=== PATIENT | female | born 1985 | race Caucasian/White ===

== ENCOUNTER 2025-09-09 10:41 | Inpatient (IN) | payer BC, SELFPAY ==
[2025-09-09] VITALS (57 sets, daily range): BP systolic 93–160; BP diastolic 48–98; PULSE 99–119; RESP 8–49; TEMP 36.1–37.4; O2SAT 92–100
--- NOTE | 2025-09-09 10:45 | RT.EKG_ITS ---
APPROVED REPORT Exam: Resting ECG Reason for Exam: Nausea vomiting Patient Location: E HR:111 bpm ECG Measurements Heart Rate 111 AXIS OK 153 P 39 QRSd 98 QRS -6 QT 283 T 172 QTc 385 Conclusion Sinus tachycardia...rate> 99 Nonspecific T abnormalities, lateral leads...T <-0.10mV, I aVL V5 V6 No Occlusion WV
--- NOTE | 2025-09-09 10:50 | W.ED.GENAD ---
Discharge Plan Disposition Patient Disposition: Admit to [facility] Discharge Details Clinical Impression: DKA, type 1 Admit Date/Time: 09/09/25 15:19 Admit Provider: Hipolito Corral Attending Provider: Hipolito Corral Primary Care Provider: Unknown,Unknown ED Provider: Todd Temple Discharge Data Discharge Date/Time-TO BE ENTERED AT DEPARTURE: 09/09/25 15:27 HPI General Date/Time Provider Initiated Documentation: 09/09/25 10:50. HPI Narrative: MDM This is a type I diabetic in DKA. Her initial venous blood gas did not show acidemia however given her vomiting my suspicion was high that she had metabolic alkalosis. Her subsequent blood gas confirmed acidosis. She had an elevated beta hydroxybutyrate negative troponins. Patient had a mildly elevated anion gap. I started her on insulin drip with D5 infusion and LR infusion following 500 cc LR bolus. I also gave her her long-acting insulin. She had no clear triggers. She is soft nontender abdomen so as not suspicious for intra-abdominal infection. No cough nor hypoxia to suggest pneumonia. No rash to chest to suggest zoster. No black or bloody stool to suggest acute GI bleed. US Guided Peripheral IV Procedure Note Indication: Difficult IV access Peripheral Prep: Skin prep: Alcohol prep. Prep agent: Prep was allowed to dry for 30 seconds. Sterility: Gloves & sterile probe cover & sterile ultrasound gel. Insertion: Appropriate procedural pause was taken. Ultrasound guided 18-gauge catheter was placed under real-time guidance in the patient's right basilic vein. Post Procedure: Estimated blood loss: Minimal Complications: None US Guided Peripheral IV Procedure Note Indication: Difficult IV access Peripheral Prep: Skin prep: Alcohol prep. Prep agent: Prep was allowed to dry for 30 seconds. Sterility: Gloves & sterile probe cover & sterile ultrasound gel. Insertion: Appropriate procedural pause was taken. Ultrasound guided 18-gauge catheter was placed under real-time guidance in the patient's left basilic vein. Post Procedure: Estimated blood loss: Minimal Complications: None Ultrasound IV confirmed by bubble study. Diagnostic interpretations performed by me: Per my independent interpretation EKG shows: Sinus tachycardia rate of 111. Normal axis. Intervals within normal limits. No acute injury pattern. No prior for comparison. HPI This is a patient with a history of type I diabetes presenting with nausea. The patient began experiencing symptoms abruptly last night around 10:00 PM. She has a history of similar episodes, typically triggered by alcohol consumption, but she has abstained from alcohol since her last hospitalization in 06/2025. During these episodes, she experiences persistent nausea at night, leading to dehydration and subsequent development of diabetic ketoacidosis (DKA). Her blood glucose level was recorded as 280 this morning. She reports no abdominal pain, chest discomfort, or breathing difficulties. She has no known cardiac issues and has not undergone any abdominal surgeries. Her current medication regimen includes insulin, metoclopramide for nausea, magnesium, and potassium. She did not take metoclopramide this morning. Her last meal was consumed at 7:00 PM the previous night. Exam General: Well-appearing in no acute distress speaking in complete sentences. Head: Normocephalic, atraumatic. Eye: Extraocular eye movements intact. No conjunctival injection. No scleral icterus. Ear, nose, mouth, throat: Grossly normal inspection. Normal voice, handling secretions normally. Neck: Trachea midline. Cardiovascular: Well-perfused distal extremities. Rapid regular rate. Respiratory: Nonlabored respiration. Clear lungs bilaterally. Gastrointestinal: Nondistended abdomen. Soft. Nontender. No rebound. No guarding. Musculoskeletal: No edema. Moving all 4 extremities spontaneously. Skin: Normal for age and race, grossly normal temperature and turgor. No acute rash. Neurologic: Alert and appropriate, no apparent acute deficits. GCS 15. Psychiatric: Mood and manner are appropriate. Grooming and personal hygiene are appropriate. Related Data Home Medications ?Medication ?Instructions ?Recorded ?Confirmed acetylcysteine 600 mg capsule 1,200 mg PO BID 07/17/25 09/09/25 crisaborole 2 % topical ointment 1 applic topical DAILY 07/17/25 09/09/25 docusate sodium 100 mg capsule 200 mg PO DAILY PRN 07/17/25 09/09/25 erythromycin ethylsuccinate 200 200 mg PO DAILY 07/17/25 09/09/25 mg/5 mL oral powder for suspension glucagon 3 mg/actuation nasal spray 3 mg intranasal ONCE 07/17/25 09/09/25 insulin glargine U-300 conc 300 14 unit subcut DAILY 07/17/25 09/09/25 unit/mL (3 mL) subcutaneous pen (Toujeo Max U-300 SoloStar) insulin lispro 100 unit/mL 1 sliding scale dose subcut 07/17/25 09/09/25 subcutaneous half-unit pen USEASDIRECTD (Humalog Wilberto Edwina (U-100)) magnesium oxide 400 mg PO DAILY 07/17/25 09/09/25 metoclopramide HCl 10 mg tablet 10 mg PO Q8H PRN 07/17/25 09/09/25 multivitamin 1 tab PO DAILY 07/17/25 09/09/25 omeprazole 40 mg capsule,delayed 40 mg PO DAILY 07/17/25 09/09/25 release potassium 99 mg tablet 99 mg PO DAILY 07/17/25 09/09/25 prochlorperazine maleate 5 mg 5 mg PO TID PRN 07/17/25 09/09/25 tablet (Compazine) triamcinolone acetonide 0.1 % 1 applic topical DAILY 07/17/25 09/09/25 topical cream Allergies Allergy/AdvReac Type Severity Reaction Status Date / Time sulfamethoxazole (From Allergy Unknown Unverified 09/09/25 10:49 Bactrim) trimethoprim (From Bactrim) Allergy Unknown Unverified 09/09/25 10:49 General Stated Complaint: Nausea/Vomit/Diar ALYSON: 3 Course Vital Signs Vital signs: Vital Signs Temperature 36.1 C L 09/09/25 10:44 Pulse 113 H 09/09/25 10:44 Respiratory Rate 20 09/09/25 10:44 Blood Pressure 160/90 H 09/09/25 10:44 Pulse Oximetry 92 09/09/25 10:44 Temperature 36.1 C L 09/09/25 10:44 Temperature Source Temporal Artery Scan 09/09/25 10:44 Pulse 113 H 09/09/25 10:44 Respiratory Rate 20 09/09/25 10:44 Blood Pressure 160/90 H 09/09/25 10:44 Blood Pressure Position Sitting 09/09/25 10:44 Pulse Oximetry 92 09/09/25 10:44 Oxygen Delivery Method Room Air 09/09/25 10:44 Oxygen Flow Rate 0 09/09/25 10:44 Critical Care Time Critical Care Time Critical Care Time: Yes Total Critical Care Time: 60 Attestation: Type 1 diabetes DKA PFSH All Active Problems (Updated 09/09/25 @ 13:34 by Todd Temple MD) DKA, type 1 (Acute) Medical History (Updated 09/09/25 @ 13:34 by Todd Temple MD) Urinary retention Type 1 diabetes Hypokalemia ECG abnormal Electrolyte abnormality Diabetic retinopathy Diabetic neuropathy Diabetic gastroparesis Left ovarian cyst Alcohol use disorder Surgical History (Updated 07/17/25 @ 12:13 by Karmen Peraza) History of esophagogastroduodenoscopy (EGD) Social History Smoking/Tobacco Use Status: Never Smoking risk assessment performed?: Yes Alcohol Intake: former Drug use: Never
[2025-09-09] MEDS: Ondansetron O.D.T. 4 MG TABEF PO (11:35)
[2025-09-09 11:37] LABS: BE (Venous) 0 mmol/L (-2-3); HCO3 (Venous) 25 mmol/L (23-28); O2 Sat (Venous) 98 %; TCO2 (Venous) 22 mmol/L (24-29); pCO2 (Venous) 37 mmHg (41-51); pO2 (Venous) 100 mmHg
[2025-09-09 11:39] LABS: Abs Immature Grans 0.05 10^3/uL (0.0-0.06); HCT 38.7 % (36.0-46.0); HGB 12.4 g/dL (11.2-15.7); Immature Grans % 0.5 %; MCH 27.1 pg (27.0-33.0); MCHC 32.0 % (32.0-36.0); MCV 85 fL (80-95); MPV 12.7 fL (8.0-11.0); Platelet Count 330 10^3/uL (130-400); RBC 4.57 10^6/uL (3.93-5.22); RDW 13.7 % (11.7-14.6); RDW-SD 42.2 fL; WBC 9.43 10^3/uL (4.4-10.8)
[2025-09-09] MEDS: Ondansetron 4 MG/2 ML VIAL IVP ×2 (12:00→19:58)
[2025-09-09 12:16] LABS: ALT 10 U/L (10-49); AST 19 U/L (<34); Albumin 4.9 g/dL (3.2-5.0); Alkaline Phosphatase 89 U/L (46-116); Anion Gap 11.9 mmol/L (3-11); BUN 23 mg/dL (9-23); Bilirubin, Total 0.4 mg/dL (0.2-1.2); CO2 27.1 mmol/L (20.0-31.0); Calcium 9.4 mg/dL (8.3-10.6); Chloride 102 mmol/L (98-107); Glucose 260 mg/dL (74-106); Lipase 22 U/L (<53); Magnesium 2.0 mg/dL (1.6-2.6); Potassium 3.6 mmol/L (3.5-5.1); Sodium 141 mmol/L (136-145); TSH (W/Ref FT4) 0.87 uIU/mL (0.55-4.78); Total Protein 9.1 g/dL (5.7-8.2)
[2025-09-09 12:21] LABS: Beta Hydroxybutyrate 3.04 mmol/L (0.02-0.27)
[2025-09-09] MEDS: Normal Saline 1,000 ML 1000 ML IV (12:21)
[2025-09-09] MEDS: METOCLOPRAMIDE 10 MG in Normal Saline 50 ML 200 MG IVPB (12:25)
[2025-09-09 12:35] LABS: Troponin I < 3 ng/L (<35)
[2025-09-09] MEDS: Droperidol 5 MG/2 ML VIAL 1.25 MG IVP (13:09)
[2025-09-09] MEDS: INSULIN REGULAR IN 0.9 % NACL 100 UNIT/100 ML BAG 5.216 UNIT IVINF (13:10)
[2025-09-09] MEDS: DEXTROSE 10%-WATER 500 ML 100 ML IV (13:19)
[2025-09-09 13:33] LABS: BE (Venous) -2 mmol/L (-2-3); HCO3 (Venous) 24 mmol/L (23-28); O2 Sat (Venous) 51 %; TCO2 (Venous) 22 mmol/L (24-29); pCO2 (Venous) 49 mmHg (41-51); pO2 (Venous) 31 mmHg
[2025-09-09 13:54] LABS: Anion Gap 12.9 mmol/L (3-11); BUN 20 mg/dL (9-23); CO2 24.1 mmol/L (20.0-31.0); Calcium 8.7 mg/dL (8.3-10.6); Chloride 105 mmol/L (98-107); Glucose 248 mg/dL (74-106); Potassium 3.8 mmol/L (3.5-5.1); Sodium 142 mmol/L (136-145)
[2025-09-09 13:55] LABS: Troponin I < 3 ng/L (<35)
[2025-09-09] MEDS: Lactated Ringers 500 ML IV (14:08)
[2025-09-09] MEDS: Insulin Glargine 100 UNITS/ML UNIT 14 UNITS SC (14:08)
[2025-09-09] MEDS: POTASSIUM CHLORIDE 10 MEQ/100 ML BAG 100 MEQ IV INF (14:09)
--- NOTE | 2025-09-09 14:39 | W.PM.HP.N ---
Date of service: 09/09/25 Time of Service: 14:00 Assessment and Plan Assessment and plan (1) DKA, type 1: Status: Acute Assessment and plan: Mixed picture with respiratory alkalosis due to vomiting Beta hydroxybutyrate elevation, HAGMA, 2nd VBG more acidotic with pH 7.3 She was given long-acting insulin in the ED less than an hour after insulin drip was started, unclear In the ICU she is started on D5-0.45NS with potassium Continue insulin drip Awaiting next BMP to assess acidosis She continues to be nauseated after admission, continue NPO except for anti-emetics 45 minutes of critical care time were spent during which patient was critically ill with life-threatening acidosis requiring direct physician care. (2) Type 1 diabetes: Assessment and plan: Home regimen basal 14u plus sliding scale Will request diabetic education (3) Chronic esophagitis: Status: Acute Assessment and plan: Continue home erythromycin, PPI Continue anti-emetics History of Present Illness History of Present Illness Chief Complaint: nausea Narrative: Emelia Avelar is a 40 year old woman presenting September 09 with 12 hours of nausea and vomiting. She is a type 1 diabetic and has had DKA numerous times. This morning when she checked her sugar it was 280. She continued to have nausea and vomiting despite none of her usual triggers, such as EtOH. She took her usual metoclopramide without relief. She was diagnosed with esophagitis in April and started on erythromycin treatment. She reports that she feels just awful and is very fatigued. Supportive at bedside. In the ED she was tachycardic HR 113 with elevated BP 160/90, vitals otherwise unremarkable. EKG with sinus rhythm. Blood glucose 260, beta-OH 3.04, anion gap 11.9. CBC unremarkable. VBG with pH 7.43, repeat with pH 7.30. She was given zofran, fluids, reglan, droperidol and started on an insulin drip with D5 (ordered as D10, not given as D10). She was also given 14u long-acting insulin, potassium and additional LR boluses. PFSH All Active Problems (Updated 09/09/25 @ 19:33 by Hipolito Corral MD) Chronic esophagitis (Acute) DKA, type 1 (Acute) Medical History (Updated 09/09/25 @ 19:33 by Hipolito Corral MD) Urinary retention Type 1 diabetes Hypokalemia ECG abnormal Electrolyte abnormality Diabetic retinopathy Diabetic neuropathy Diabetic gastroparesis Left ovarian cyst Alcohol use disorder Surgical History (Updated 07/17/25 @ 12:13 by Karmen Peraza) History of esophagogastroduodenoscopy (EGD) Social History Smoking/Tobacco Use Status: Never Smoking risk assessment performed?: Yes Alcohol Intake: former Drug use: Never Housing: house Meds Allergies and Home Medications Allergies Allergy/AdvReac Type Severity Reaction Status Date / Time sulfamethoxazole (From Allergy Unknown Unverified 09/09/25 10:49 Bactrim) trimethoprim (From Bactrim) Allergy Unknown Unverified 09/09/25 10:49 Home Medications ?Medication ?Instructions ?Recorded ?Confirmed ?Type acetylcysteine 600 mg capsule 1,200 mg PO BID 07/17/25 09/09/25 History crisaborole 2 % topical ointment 1 applic topical DAILY 07/17/25 09/09/25 History docusate sodium 100 mg capsule 200 mg PO DAILY PRN 07/17/25 09/09/25 History erythromycin ethylsuccinate 200 200 mg PO DAILY 07/17/25 09/09/25 History mg/5 mL oral powder for suspension glucagon 3 mg/actuation nasal spray 3 mg intranasal ONCE 07/17/25 09/09/25 History insulin glargine U-300 conc 300 14 unit subcut DAILY 07/17/25 09/09/25 History unit/mL (3 mL) subcutaneous pen (Toujeo Max U-300 SoloStar) insulin lispro 100 unit/mL 1 sliding scale dose subcut 07/17/25 09/09/25 History subcutaneous half-unit pen USEASDIRECTD (Humalog Wilbetro KwikPen (U-100)) magnesium oxide 400 mg PO DAILY 07/17/25 09/09/25 History metoclopramide HCl 10 mg tablet 10 mg PO Q8H PRN 07/17/25 09/09/25 History multivitamin 1 tab PO DAILY 07/17/25 09/09/25 History omeprazole 40 mg capsule,delayed 40 mg PO DAILY 07/17/25 09/09/25 History release potassium 99 mg tablet 99 mg PO DAILY 07/17/25 09/09/25 History prochlorperazine maleate 5 mg 5 mg PO TID PRN 07/17/25 09/09/25 History tablet (Compazine) triamcinolone acetonide 0.1 % 1 applic topical DAILY 07/17/25 09/09/25 History topical cream Exam Narrative Exam Narrative: General: This is a thin, pleasant woman in distress due to nausea and fatigue HEENT: Normocephalic, atraumatic CV: tachycardic, regular rhythm Resp: CTAB Abd: soft, NTND MSK: voluntary motion x4 Neuro: awake, alert, no focal deficits Results Labs 09/09/25 11:15 09/09/25 16:30 Labs: Laboratory Results - last 24 hr 09/09/25 09/09/25 09/09/25 11:15 11:51 13:30 WBC 9.43 RBC 4.57 Hgb 12.4 Hct 38.7 MCV 85 MCH 27.1 MCHC 32.0 RDW 13.7 Plt Count 330 MPV 12.7 H Immature Gran % 0.5 Neutrophils % 88.6 Lymphocytes % 8.6 Monocytes % 1.8 Eosinophils % 0.0 Basophils % 0.5 Nucleated RBC % 0.0 Absolute Neutrophils 8.35 H Absolute Lymphocytes 0.81 L Absolute Monocytes 0.17 Absolute Eosinophils 0.00 Absolute Basophils 0.05 VBG pH 7.43 H 7.30 L VBG pCO2 37 L 49 VBG pO2 100 31 VBG HCO3 25 24 VBG Total CO2 22 L 22 L VBG O2 Saturation 98 51 VBG Base Excess 0 -2 Sodium Cancelled 141 142 Potassium Cancelled 3.6 3.8 Chloride Cancelled 102 105 Carbon Dioxide Cancelled 27.1 24.1 Anion Gap Cancelled 11.9 H 12.9 H BUN Cancelled 23 20 Creatinine Cancelled 0.58 0.53 L Est GFR (CKD-EPI 2020) Cancelled 116.26 129.00 Glucose Cancelled 260 H 248 H Calcium Cancelled 9.4 8.7 Magnesium Cancelled 2.0 Total Bilirubin Cancelled 0.4 AST Cancelled 19 ALT Cancelled 10 Alkaline Phosphatase Cancelled 89 Troponin I Cancelled < 3 < 3 Total Protein Cancelled 9.1 H Albumin Cancelled 4.9 Lipase Cancelled 22 Beta-Hydroxybutyrate Cancelled 3.04 H TSH Cancelled 0.87 Last Vital Signs Temp 36.1 C L 09/09/25 10:51 Pulse 105 H 09/09/25 12:20 Resp 19 09/09/25 12:20 BP 160/90 H 09/09/25 10:51 Pulse Ox 99 09/09/25 12:20 VTE Prohylaxis Risk Level: Low Risk Contraindications: None Prophylaxis: Patient ambulatory Time Spent Time spent with Patient: 40-54 minutes Time was spent: preparing to see the patient(eg.review tests), obtaining and/or reviewing separately otained hiistory, ordering medications,tests, procedures, referring, communicating with other health director critical care, indepentently interpreting results, counseling the patient and care coordination
[2025-09-09] MEDS: Lactated Ringers 1,000 ML 100 ML IV (15:13)
--- NOTE | 2025-09-09 15:17 | W.PC.ACHO ---
Registration Status: REG ER Primary Language: Preferred Language: ED Information & Data Chief Complaint Nausea/Vomit/Diar 09/09/25 10:53 Triage Note Patient state she started 09/09/25 10:44 vomiting last night. Patient is type 1 diabetic Medical / Surgical History (Last Updated 07/17/25 @ 12:13 by Kamren Peraza) Urinary retention Type 1 diabetes Hypokalemia ECG abnormal Electrolyte abnormality Diabetic retinopathy Diabetic neuropathy Diabetic gastroparesis Left ovarian cyst Alcohol use disorder (Last Updated 07/17/25 @ 12:13 by Karmen Peraza) History of esophagogastroduodenoscopy (EGD) Most Recent Vital Signs Temperature 36.1 C L 09/09/25 10:51 Temperature Source Oral 09/09/25 10:51 Pulse 112 H 09/09/25 14:40 Pulse 106 H 09/09/25 15:10 Respiratory Rate 16 09/09/25 15:10 Blood Pressure 133/88 09/09/25 13:01 Blood Pressure Mean 99 09/09/25 13:01 Blood Pressure Position Sitting 09/09/25 10:51 Pulse Oximetry 98 09/09/25 14:40 Oxygen Delivery Method Room Air 09/09/25 10:51 Oxygen Flow Rate 0 09/09/25 10:44 Allergies sulfamethoxazole (From Bactrim) Allergy (Unverified 09/09/25 10:49) Unknown trimethoprim (From Bactrim) Allergy (Unverified 09/09/25 10:49) Unknown Active Medications Generic Name Dose Route Start Last Admin Trade Name Freq PRN Reason Stop Dose Admin Dextrose/Water 500 mls @ 100 mls/hr 09/09/25 12:45 09/09/25 13:19 Dextrose 10%-Water IV 100 mls/hr INFUSION LEX Administration Insulin Human Regular 100 unit in 100 mls @ 5.216 mls/hr 09/09/25 12:45 09/09/25 13:10 Myxredlin IVINF 0.1 unit/kg/hr INFUSION LEX 5.216 mls/hr Protocol Administration 0.1 UNIT/KG/HR IV IV Catheter Type [Right Saline Lock Antecubital] IV Catheter Gauge [Left Upper 18 arm] IV Catheter Gauge [Right 18 Antecubital] Diet Orders Category Date Time Status Nothing Per Oral [DIET] Nutrition 09/09/25 14:37 Active Diagnostics 09/09/25 09/09/25 09/09/25 Range/Units 13:30 11:51 11:15 WBC 9.43 (4.4-10.8) 10^3/uL RBC 4.57 (3.93-5.22) 10^6/uL Hgb 12.4 (11.2-15.7) g/dL Hct 38.7 (36.0-46.0) % MCV 85 (80-95) fL MCH 27.1 (27.0-33.0) pg MCHC 32.0 (32.0-36.0) % RDW 13.7 (11.7-14.6) % Plt Count 330 (130-400) 10^3/uL MPV 12.7 H (8.0-11.0) fL Immature Gran % 0.5 % Neutrophils % 88.6 % Lymphocytes % 8.6 % Monocytes % 1.8 % Eosinophils % 0.0 % Basophils % 0.5 % Nucleated RBC % 0.0 (0.0-0.3) % Absolute Neutrophils 8.35 H (1.2-6.7) 10^3/uL Absolute Lymphocytes 0.81 L (1.2-3.4) 10^3/uL Absolute Monocytes 0.17 (0.1-0.8) 10^3/uL Absolute Eosinophils 0.00 (0.0-0.7) 10^3/uL Absolute Basophils 0.05 (0.0-0.2) 10^3/uL VBG pH 7.30 L 7.43 H (7.31-7.41) VBG pCO2 49 37 L (41-51) mmHg VBG pO2 31 100 mmHg VBG HCO3 24 25 (23-28) mmol/L VBG Total CO2 22 L 22 L (24-29) mmol/L VBG O2 Saturation 51 98 % VBG Base Excess -2 0 (-2-3) mmol/L Sodium 142 141 Cancelled Potassium 3.8 3.6 Cancelled Chloride 105 102 Cancelled Carbon Dioxide 24.1 27.1 Cancelled Anion Gap 12.9 H 11.9 H Cancelled BUN 20 23 Cancelled Creatinine 0.53 L 0.58 Cancelled Est GFR (CKD-EPI 2020) 129.00 116.26 Cancelled Glucose 248 H 260 H Cancelled Calcium 8.7 9.4 Cancelled Magnesium 2.0 Cancelled Total Bilirubin 0.4 Cancelled AST 19 Cancelled ALT 10 Cancelled Alkaline Phosphatase 89 Cancelled Troponin I < 3 < 3 Cancelled Total Protein 9.1 H Cancelled Albumin 4.9 Cancelled Lipase 22 Cancelled Beta-Hydroxybutyrate 3.04 H Cancelled TSH 0.87 Cancelled [id number] Documentation Fingerstick Glucose Start: 09/09/25 13:47 Freq: Status: Active Protocol: Activity Type Activity Date Activity User E-sign Co-sign Detail Recorded Client Recorded Date Recorded By Document 09/09/25 14:43 BKG DAEMON(10) [id number] 09/09/25 14:44 BKG DAEMON(10) Intake and Output - 24 Hour Total 09/09/25 10:41 thru 09/09/25 14:10 Intake Total 1052 Balance 1052 Weight 52.163 kg Intake: IV 1052 Other: Stool Size Large Stool Characteristics Liquid Brown Emesis Description Retching Falls Risk Assessment History of Falls No History 09/09/25 12:23 Contributing Factors No Factors 09/09/25 12:23 Ambulatory Aids Independent 09/09/25 12:23 Tubes/Lines None 09/09/25 12:23 Gait Evaluation No gait disturbance 09/09/25 12:23 Cognition No cognitive impairment 09/09/25 12:23 Fall Total Score 0 09/09/25 12:23 Level of Risk Standard/Low Risk 09/09/25 12:23 Problems (Last Updated 07/17/25 @ 12:13 by Karmen Peraza) DKA, type 1 (Acute) Attestation Statement: By documenting the first initial, last name, and credentials of the reporting nurse below, both parties acknowledge that all relevant information regarding the patient handoff has been communicated, and that all questions have been addressed to ensure continuity and safety of care. Additional Patient Information/Comments: Extremely tired, incontinent of BM and urine, bilateral IV- US guided placement. Isulin drip, 10 MeQ K replacement in ER, LR and D5 running. Report Received From: Matt Lopez RN
[2025-09-09 17:03] LABS: Anion Gap 8.1 mmol/L (3-11); BUN 21 mg/dL (9-23); CO2 27.9 mmol/L (20.0-31.0); Calcium 8.7 mg/dL (8.3-10.6); Chloride 108 mmol/L (98-107); Glucose 159 mg/dL (74-106); Magnesium 1.8 mg/dL (1.6-2.6); Potassium 3.5 mmol/L (3.5-5.1); Sodium 144 mmol/L (136-145)
[2025-09-09] MEDS: POTASSIUM CHLORIDE/0.9% NACL 1,000 ML 250 MEQ IV (17:17)
[2025-09-09] MEDS: DEXTROSE 5%-0.45% SALINE 1,000 ML 150 ML IV (18:00)
[2025-09-09] MEDS: POTASSIUM CHLORIDE 20 MEQ/100 ML BAG 50 MEQ IV INF ×2 (19:19→21:12)
[2025-09-09] MEDS: INSULIN REGULAR IN 0.9 % NACL 100 UNIT/100 ML BAG IVINF (19:54)
[2025-09-09 20:18] LABS: Glucose 500 mg/dL (Negative)
[2025-09-09 20:27] LABS: C & S Indicated? Yes; WBC >50 HPF (0-5)
[2025-09-09 20:36] LABS: BE (Venous) -2 mmol/L (-2-3); HCO3 (Venous) 24 mmol/L (23-28); O2 Sat (Venous) 86 %; TCO2 (Venous) 23 mmol/L (24-29); pCO2 (Venous) 45 mmHg (41-51); pO2 (Venous) 53 mmHg
[2025-09-09] MEDS: Prochlorperazine 10 MG/2 ML VIAL 5 MG IVP (20:40)
[2025-09-09 20:57] LABS: Anion Gap 11 mmol/L (3-11); BUN 19 mg/dL (9-23); CO2 24.0 mmol/L (20.0-31.0); Calcium 8.6 mg/dL (8.3-10.6); Chloride 108 mmol/L (98-107); Glucose 223 mg/dL (74-106); Magnesium 1.8 mg/dL (1.6-2.6); Potassium 4.1 mmol/L (3.5-5.1); Sodium 143 mmol/L (136-145)
[2025-09-09] MEDS: cefTRIAXone 1 GM/50 ML BAG IV (22:08)
[2025-09-09] MEDS: DEXTROSE 5%-0.45% SALINE 1,000 ML 250 ML IV (22:45)
[2025-09-10] VITALS (36 sets, daily range): BP systolic 89–154; BP diastolic 48–94; PULSE 90–120; RESP 13–26; TEMP 36.4–37.4; O2SAT 91–100
[2025-09-10 01:09] LABS: Anion Gap 7.2 mmol/L (3-11); BUN 17 mg/dL (9-23); CO2 24.8 mmol/L (20.0-31.0); Calcium 8.0 mg/dL (8.3-10.6); Chloride 108 mmol/L (98-107); Glucose 214 mg/dL (74-106); Potassium 3.4 mmol/L (3.5-5.1); Sodium 140 mmol/L (136-145)
[2025-09-10] MEDS: POTASSIUM CHLORIDE/D5-0.45NACL 1,000 ML 150 MEQ IV ×2 (01:38→08:30)
[2025-09-10] MEDS: Ondansetron 4 MG/2 ML VIAL IVP (02:04)
[2025-09-10] MEDS: Normal Saline Flush 10 ML SYR IVP ×7 (02:05→23:49)
[2025-09-10] MEDS: Prochlorperazine 10 MG/2 ML VIAL 5 MG IVP ×2 (02:39→08:01)
[2025-09-10 04:38] LABS: BE (Venous) -1 mmol/L (-2-3); HCO3 (Venous) 24 mmol/L (23-28); O2 Sat (Venous) 90 %; TCO2 (Venous) 22 mmol/L (24-29); pCO2 (Venous) 42 mmHg (41-51); pO2 (Venous) 56 mmHg
[2025-09-10 04:39] LABS: Abs Immature Grans 0.01 10^3/uL (0.0-0.06); HCT 33.2 % (36.0-46.0); HGB 10.6 g/dL (11.2-15.7); Immature Grans % 0.1 %; MCH 27.0 pg (27.0-33.0); MCHC 31.9 % (32.0-36.0); MCV 85 fL (80-95); MPV 10.7 fL (8.0-11.0); Platelet Count 279 10^3/uL (130-400); RBC 3.92 10^6/uL (3.93-5.22); RDW 14.0 % (11.7-14.6); RDW-SD 43.2 fL; WBC 8.16 10^3/uL (4.4-10.8)
[2025-09-10 05:05] LABS: Anion Gap 8.5 mmol/L (3-11); BUN 15 mg/dL (9-23); CO2 24.5 mmol/L (20.0-31.0); Calcium 8.4 mg/dL (8.3-10.6); Chloride 107 mmol/L (98-107); Glucose 129 mg/dL (74-106); Potassium 4.0 mmol/L (3.5-5.1); Sodium 140 mmol/L (136-145)
[2025-09-10 05:29] LABS: Magnesium 1.8 mg/dL (1.6-2.6)
[2025-09-10 09:07] LABS: Anion Gap 7.8 mmol/L (3-11); BUN 14 mg/dL (9-23); CO2 25.2 mmol/L (20.0-31.0); Calcium 8.1 mg/dL (8.3-10.6); Chloride 109 mmol/L (98-107); Glucose 59 mg/dL (74-106); Potassium 3.5 mmol/L (3.5-5.1); Sodium 142 mmol/L (136-145)
[2025-09-10] MEDS: Dextrose 50%-Water 25 GM/50 ML SYR IVP (09:10)
[2025-09-10] MEDS: Metoclopramide 10 MG/2 ML VIAL IVP ×3 (09:17→23:49)
[2025-09-10] MEDS: Pantoprazole 40 MG VIAL IVP (09:18)
[2025-09-10] MEDS: Lactated Ringers 500 ML IV (10:28)
--- NOTE | 2025-09-10 11:26 | PHA.REVIEW2 ---
Pharmacy Admission Review Admission Clinical Review Admission Pharmacy Review: Chronic esophagitis (Acute) DKA, type 1 (Acute) sulfamethoxazole (From Bactrim) Allergy (Unverified 09/09/25 10:49) Unknown trimethoprim (From Bactrim) Allergy (Unverified 09/09/25 10:49) Unknown Resuscitation Status Full Code Height 5 ft 1 in Weight 53.8 kg Comments Comments/Follow Ups: Follow up - DVT prophylaxis and missing home meds Pharmacy Admission Review Renal Dosing Renal Dosing: BUN 14 mg/dL (9-23) 09/10/25 08:32 Creatinine 0.64 mg/dL (0.55-1.02) 09/10/25 08:32 Medications needing adjustments: Reviewed (CrCl 101.15 mL/min) List of meds needing interventions: Current medications are okay Anticoagulation Anticoagulation: Hgb 10.6 g/dL (11.2-15.7) L 09/10/25 04:31 Hct 33.2 % (36.0-46.0) L 09/10/25 04:31 Plt Count 279 10^3/uL (130-400) 09/10/25 04:31 Creatinine 0.64 mg/dL (0.55-1.02) 09/10/25 08:32 DVT Prophylaxis: Intervened (none at this time -reached out to provider, waiting to hear back) Relevant Labs Relevant Labs: Sodium 142 mmol/L (136-145) 09/10/25 08:32 Potassium 3.5 mmol/L (3.5-5.1) 09/10/25 08:32 Chloride 109 mmol/L (98-107) H 09/10/25 08:32 Phosphorus 1.7 mg/dL (2.4-5.1) L 09/10/25 04:31 Magnesium 1.8 mg/dL (1.6-2.6) 09/10/25 04:31 Electrolytes, C-Reactive P, ESR: Intervened (reached out to provider about phos level - waiting to hear back) DM Control DM Control: Glucose 59 mg/dL (74-106) L 09/10/25 08:32 Finger Stick Blood Glucose 162 0925 Finger Stick Blood Glucose 162 0925 Finger Stick Blood Glucose 55 0858 Finger Stick Blood Glucose 55 0858 Finger Stick Blood Glucose 55 0828 Finger Stick Blood Glucose 55 0828 Finger Stick Blood Glucose 65 0809 Finger Stick Blood Glucose 65 0809 Finger Stick Blood Glucose 86 0728 Finger Stick Blood Glucose 86 0728 Finger Stick Blood Glucose 126 0627 Finger Stick Blood Glucose 126 0627 Finger Stick Blood Glucose 149 0529 Finger Stick Blood Glucose 149 0529 Finger Stick Blood Glucose 119 0423 Finger Stick Blood Glucose 119 0423 DM Control: Intervened (insulin infusion order paused this morning but was still active and patient did not have an order for SS insulin. Reached out to provider who discontinued infusion and added sliding scale.) Insulin Dosing, Diabetic Medication: Has order for SS insulin Cardiac Review Cardiac Review: Troponin I < 3 ng/L (<35) 09/09/25 13:30 Blood Pressure : Heart Rate 112/68 : 105 1100 Blood Pressure : Heart Rate 92/59 : 101 1001 Blood Pressure : Heart Rate 137/84 : 109 0901 Blood Pressure : Heart Rate 133/84 : 108 0846 Blood Pressure : Heart Rate 90/54 : 90 0701 BP, HR, EF%: Reviewed QTc Review QTc: Reviewed (385 from 09/09/25) IV to PO Switch IV Medications: Reviewed (ceftriaxone and metoclopramide) Home Meds Home Med List reviewed: Intervened Relevent Home Meds Not ordered & why?: NAC, crisaborole ointment, docusate (PRN), Toujeo Max, magnesium, multivitamin, omeprazole, potassium, prochlorperazine (PRN) and triamcinolone cream Reached out to provider about missing home meds - waiting to hear back Current Meds Current Medication Order Review: Reviewed Pharmacy Antibiotic Review Relevant Labs: WBC 8.16 10^3/uL (4.4-10.8) 09/10/25 04:31 Temperature 37 C Temperature 36.4 C Temperature 36.8 C Microbiology 09/09/25 20:00 Urine Culture - Preliminary Urine - Reflex from Ua Escherichia coli Pharmacy Antibiotic Activity: C/S review and Reviewed, no change Comments: Patient is on ceftriaxone, day 1, for UTI. Comments Comments/Follow Ups: Follow up - DVT prophylaxis and missing home meds
[2025-09-10] MEDS: DEXTROSE 5%-LACTATED RINGERS 1,000 ML 50 ML IV (11:40)
[2025-09-10] MEDS: Lactated Ringers 1,000 ML 50 ML IV (11:41)
[2025-09-10] MEDS: Insulin Aspart 300 UNITS/3 ML PEN SC ×2 (12:44→17:12)
[2025-09-10] MEDS: LORazepam 2 MG/ML VIAL 0.5 MG IVP (13:00)
[2025-09-10] MEDS: Droperidol 5 MG/2 ML VIAL 1.25 MG IVP (13:18)
--- NOTE | 2025-09-10 14:23 | PT.INIE ---
PT Notes Visit Reasons: DKA Physical Therapy Inpatient Initial Evaluation Date: 09/10/2025 Referring Doctor: Dr Corral PT Orders: PT CONSULT: PT Evaluation D/C Non PT Dependent Precautions: Telemetry Patient Profile/Admitting Diagnosis: Pt is 40yo female who presented to ED with 12 hours Nausea and vomiting. She was diagnosed with esophagitis in April and started on erythromycin treatment. She reports that she feels just awful and is very fatigued. In the ED, she was tachycardic HR 113 with elevated BP 160/90, vitals otherwise unremarkable. EKG with sinus rhythm. Blood glucose 260, beta-OH 3.04, anion gap 11.9. CBC unremarkable. VBG with pH 7.43, repeat with pH 7.30. She was given zofran, fluids, reglan, droperidol and started on an insulin drip with D5 (ordered as D10, not given as D10). She was also given 14u long-acting insulin, potassium and additional LR boluses. Pt. admitted to ICU for medical management. PT Consult placed. PMHX: Chronic esophagitis (Acute) DKA, type 1 (Acute) Medical History (Updated 09/09/25 @ 19:33 by Hipolito Corral MD) Urinary retention Type 1 diabetes Hypokalemia ECG abnormal Electrolyte abnormality Diabetic retinopathy Diabetic neuropathy Diabetic gastroparesis Left ovarian cyst Alcohol use disorder Surgical History (Updated 07/17/25 @ 12:13 by Karmen Peraza) History of esophagogastroduodenoscopy (EGD) Social History/Home Situation: resides at home with her . She has 3 ADELAIDA with no rail and FOS to her bedroom with rail.She is independent with Ambulation Equipment Owned/DME: none Subjective: Pt reports she just feels weak and sick. She states she can walk but she just has no energy. Objective: [] General Observation: Pt presented semireclined position with blankets under her chin and eyes closed, She opened eyes to her name. then closed eyes to answer questions, Mental Status: A+Ox4, minimal conversation, answered all questions ;able to follow all instructions, agreeable to participate in evaluation despitenot feeling well Pain:denies Vitals: 124/80 100HR Sats: 95% ROM: [] Right Upper Extremity: WNL Left Upper Extremity: WNL Right Lower Extremity: WNL Left Lower Extremity: WNL Strength: [] Right Upper Extremity: 5/5 Left Upper Extremity: 5/5 Right Lower Extremity:5/5 Left Lower Extremity: 5/5 Sensation: intact Bed Mobility/Transfers: [] Supine to sit independent sit to supine: Independent Sit to stand independent Stand to sit independent Bed to chair Independent without device Gait: Ambulated 200 feet pushing IV pole standby assist with reciprocal pattern demonstrating reduced step length and slow cely Stairs: 3 4 steps? and 2 6 steps with rails Supervision reciprocal pattern Balance: [] Static Sitting: Normal Dynamic Sitting: Normal Static Standing: Normal Dynamic Standing: Good Special Tests: [] Mobility Limitations Standardized Measure [] [facility] AM-PAC 6 clicks Basic Mobility Inpatient Short Form: [] Raw Score: 24 CMS Score: 0% deficit Informed Consent/Education: Patient instructed in purpose of PT consult. Assessment: Patient is a 40-year-old female presented to the ED with nausea and vomiting diagnosed with diabetic ketoacidosis and admitted to ICU for medical management and monitoring. Patient demonstrates impaired functional activity tolerance and generalized weakness related to current illness. Despite not feeling well, Patient demonstrates independence with bed mobility, transfers, ambulation without device and supervision on stairs with railing. No further skilled PT services indicated at this time. Patient is assessed as a low complexity based on the following: History: 40-year-old female with impairment level findings, functional limitations, and past medical history as indicated above Examination: Demonstrable impairment in strength, balance, and mobility level with underlying impairments and functional limitations as documented above Presentation: stable/evolving Decision Making: low Goals: N/A. PT evaluation and 1-2 treatment sessions only for functional mobility training using recommended AD and for HEP instruction. Plan of Care/Treatment Plan: N/A. PT evaluation and 1-2 treatment session only for functional mobility training using recommended AD and for HEP instruction. DISCHARGE RECOMMENDATIONS: Home with no services when medically appropriate TREATMENT CODE/TIME:82963, [id number] Thank you for the opportunity to participate in the care of this patient. Hyun Peterson PT [facility]
--- NOTE | 2025-09-10 16:33 | W.NUTRFU ---
Date of service: 09/10/25 Time of Service: 12:00 Nutrition Note NOTE: Visited twice with Emelia today - She has been lethargic and was almost sleeping at first visit this morning - she confirmed it better to follow up later as she still felt nauseous. Tried again just before lunch and she has received a dose of lorazepam and was sleeping soundly and did not wake her. Pt will continue to be admitted over night and I will plan on following up tomorrow morning to attempt more of an interview. From chart review - DKA at least in part result of nausea and vomiting she's been having. She is currently off insulin drip and ordered for her home 14units glargine and a moderate sliding scale novolog AC . Hx of dx of esophagitis last summer and continues to have concerns with significant gastroparesis. Low glucose this morning at 55 and treated with 25ml 50% dextrose. Reglan ordered as well as well a push of IV protonix this morning. No extensive weight hx to review - current BMI wnl. Pt NPO or refuse at meals since admission. Would suggest b12 and folate labs related to gastritis/esophagitis and hx of PPI use Will vist with pt tomorrow to discuss diet at home and offer outpatient counseling. Time Spent in Nutritional Counseling and Treatment: 5 min
--- NOTE | 2025-09-10 16:37 | W.PM.HP.N ---
PFSH All Active Problems (Updated 09/09/25 @ 19:33 by Hipolito Corral MD) Chronic esophagitis (Acute) DKA, type 1 (Acute) Medical History (Updated 09/09/25 @ 19:33 by Hipolito Corral MD) Urinary retention Type 1 diabetes Hypokalemia ECG abnormal Electrolyte abnormality Diabetic retinopathy Diabetic neuropathy Diabetic gastroparesis Left ovarian cyst Alcohol use disorder Surgical History (Updated 07/17/25 @ 12:13 by Karmen Peraza) History of esophagogastroduodenoscopy (EGD) Social History Smoking/Tobacco Use Status: Never Smoking risk assessment performed?: Yes Alcohol Intake: former Drug use: Never Housing: house Meds Allergies and Home Medications Allergies Allergy/AdvReac Type Severity Reaction Status Date / Time sulfamethoxazole (From Allergy Unknown Unverified 09/09/25 10:49 Bactrim) trimethoprim (From Bactrim) Allergy Unknown Unverified 09/09/25 10:49 Home Medications ?Medication ?Instructions ?Recorded ?Confirmed ?Type acetylcysteine 600 mg capsule 1,200 mg PO BID 07/17/25 09/09/25 History crisaborole 2 % topical ointment 1 applic topical DAILY 07/17/25 09/09/25 History docusate sodium 100 mg capsule 200 mg PO DAILY PRN 07/17/25 09/09/25 History glucagon 3 mg/actuation nasal spray 3 mg intranasal ONCE 07/17/25 09/09/25 History insulin glargine U-300 conc 300 14 unit subcut DAILY 07/17/25 09/09/25 History unit/mL (3 mL) subcutaneous pen (Toujeo Max U-300 SoloStar) insulin lispro 100 unit/mL 1 sliding scale dose subcut 07/17/25 09/09/25 History subcutaneous half-unit pen USEASDIRECTD (Humalog Wilberto KwikPen (U-100)) magnesium oxide 400 mg PO DAILY 07/17/25 09/09/25 History metoclopramide HCl 10 mg tablet 10 mg PO Q8H PRN 07/17/25 09/09/25 History multivitamin 1 tab PO DAILY 07/17/25 09/09/25 History omeprazole 40 mg capsule,delayed 40 mg PO DAILY 07/17/25 09/09/25 History release potassium 99 mg tablet 99 mg PO DAILY 07/17/25 09/09/25 History prochlorperazine maleate 5 mg 5 mg PO TID PRN 07/17/25 09/09/25 History tablet (Compazine) triamcinolone acetonide 0.1 % 1 applic topical DAILY 07/17/25 09/09/25 History topical cream Results Labs 09/10/25 04:31 09/10/25 08:32 Labs: Laboratory Results - last 24 hr 09/09/25 09/09/25 09/09/25 16:30 20:00 20:20 WBC RBC Hgb Hct MCV MCH MCHC RDW Plt Count MPV Immature Gran % Neutrophils % Lymphocytes % Monocytes % Eosinophils % Basophils % Nucleated RBC % Absolute Neutrophils Absolute Lymphocytes Absolute Monocytes Absolute Eosinophils Absolute Basophils VBG pH 7.34 VBG pCO2 45 VBG pO2 53 VBG HCO3 24 VBG Total CO2 23 L VBG O2 Saturation 86 VBG Base Excess -2 Sodium 144 143 Potassium 3.5 4.1 Chloride 108 H 108 H Carbon Dioxide 27.9 24.0 Anion Gap 8.1 11 BUN 21 19 Creatinine 0.57 0.57 Est GFR (CKD-EPI 2020) 118.61 118.61 Glucose 159 H 223 H Calcium 8.7 8.6 Phosphorus Magnesium 1.8 1.8 Urine Color Yellow Urine Clarity Turbid Urine pH 5.5 Ur Specific [place] 1.020 Urine Protein 100 H Urine Ketones 80 H Urine Blood Large H Urine Nitrite Negative Urine Bilirubin Negative Urine Urobilinogen 0.2 Ur Leukocyte Esterase Large H Urine RBC Not Applicable Urine WBC >50 H Ur Epithelial Cells Not Applicable Urine Crystals Not Applicable Urine Bacteria Not Applicable Urine Mucus Not Applicable Ur Culture Indicated? Yes Urine Glucose 500 H 09/10/25 09/10/25 09/10/25 00:42 04:31 08:32 WBC 8.16 RBC 3.92 L Hgb 10.6 L Hct 33.2 L MCV 85 MCH 27.0 MCHC 31.9 L RDW 14.0 Plt Count 279 MPV 10.7 Immature Gran % 0.1 Neutrophils % 67.6 Lymphocytes % 20.3 Monocytes % 11.8 Eosinophils % 0.0 Basophils % 0.2 Nucleated RBC % 0.0 Absolute Neutrophils 5.51 Absolute Lymphocytes 1.66 Absolute Monocytes 0.96 H Absolute Eosinophils 0.00 Absolute Basophils 0.02 VBG pH 7.37 VBG pCO2 42 VBG pO2 56 VBG HCO3 24 VBG Total CO2 22 L VBG O2 Saturation 90 VBG Base Excess -1 Sodium 140 140 142 Potassium 3.4 L 4.0 3.5 Chloride 108 H 107 109 H Carbon Dioxide 24.8 24.5 25.2 Anion Gap 7.2 8.5 7.8 BUN 17 15 14 Creatinine 0.60 0.60 0.64 Est GFR (CKD-EPI 2020) 111.80 111.80 103.77 Glucose 214 H 129 H 59 L Calcium 8.0 L 8.4 8.1 L Phosphorus 1.7 L Magnesium 1.8 Urine Color Urine Clarity Urine pH Ur Specific [place] Urine Protein Urine Ketones Urine Blood Urine Nitrite Urine Bilirubin Urine Urobilinogen Ur Leukocyte Esterase Urine RBC Urine WBC Ur Epithelial Cells Urine Crystals Urine Bacteria Urine Mucus Ur Culture Indicated? Urine Glucose Last Vital Signs Temp 37 C 09/10/25 08:51 Pulse 103 H 09/10/25 16:00 Resp 23 09/10/25 16:00 BP 120/74 09/10/25 16:00 Pulse Ox 95 09/10/25 16:00 VTE Prohylaxis Risk Level: Low Risk Contraindications: None Prophylaxis: Patient ambulatory
--- NOTE | 2025-09-10 17:22 | PGE_ITS ---
Date of Service Date of service: 09/10/25 Time of Service: 08:00 Assessment and Plan Assessment and plan (1) Intractable nausea and vomiting: Status: Acute Assessment and plan: She continues to be nauseated after admission, and after resolution of DKA. Continue NPO except for anti-emetics Continue D5LR at 50 and LR at 50 Current N/V regimen is metoclopramide 10 mg IV q4h with droperidol ordered when needed Gave ativan 0.5 mg IV with good result, she has been able to sleep Downgraded from ICU to the floor Low risk for VTE. Ambulatory. No chemoprophylaxis at this time. (2) DKA, type 1: Status: Resolved Assessment and plan: Mixed picture with respiratory alkalosis due to vomiting Beta hydroxybutyrate elevation, HAGMA, 2nd VBG more acidotic with pH 7.3 She was given long-acting insulin in the ED less than an hour after insulin drip was started, unclear Off insulin drip as of Sep 10 morning, challenging transition due to intolerance of PO (3) Type 1 diabetes: Assessment and plan: Home regimen basal 14u plus sliding scale She may need home regimen adjusted pending PO tolerance Diabetic education and nutrition consults requested (4) Chronic esophagitis: Status: Acute Assessment and plan: Continue home PPI Continue anti-emetics Discharge Planning Discharge Planning: Patient may be able to return to her previous home N/V regimen, metoclopramide 10 mg PO q8h PRN. Consider giving ativan for home as well. Awaiting nutrition consult. Likely DC home, no services, Sep 11 or . Subjective Subjective Interval history since last seen: Ms. Avelar is out of DKA but continues to have nausea and vomiting which she finds very distressing. Her advised that she started a wellness diet through [employer] and is concerned that this led to worsening of her symptoms. She feels she has been to so many doctors who aren't offering much hope. She declines to try Marinol (which is now in stock at [facility] pharmacy). Exam Narrative Exam Narrative: General: This is a thin, pleasant woman in distress due to nausea and fatigue HEENT: Normocephalic, atraumatic CV: RRR Resp: CTAB Abd: soft, NTND MSK: voluntary motion x4 Neuro: awake, alert, no focal deficits Objective Last Vital Signs Temp 37.4 C 12/29/25 16:47 Pulse 99 H 09/10/25 16:47 Resp 18 09/10/25 16:47 BP 120/74 09/10/25 16:00 Pulse Ox 97 09/10/25 16:47 Laboratory Results - last 24 hr 09/09/25 09/09/25 09/10/25 20:00 20:20 00:42 WBC RBC Hgb Hct MCV MCH MCHC RDW Plt Count MPV Immature Gran % Neutrophils % Lymphocytes % Monocytes % Eosinophils % Basophils % Nucleated RBC % Absolute Neutrophils Absolute Lymphocytes Absolute Monocytes Absolute Eosinophils Absolute Basophils VBG pH 7.34 VBG pCO2 45 VBG pO2 53 VBG HCO3 24 VBG Total CO2 23 L VBG O2 Saturation 86 VBG Base Excess -2 Sodium 143 140 Potassium 4.1 3.4 L Chloride 108 H 108 H Carbon Dioxide 24.0 24.8 Anion Gap 11 7.2 BUN 19 17 Creatinine 0.57 0.60 Est GFR (CKD-EPI 2020) 118.61 111.80 Glucose 223 H 214 H Calcium 8.6 8.0 L Phosphorus Magnesium 1.8 Urine Color Yellow Urine Clarity Turbid Urine pH 5.5 Ur Specific [place] 1.020 Urine Protein 100 H Urine Ketones 80 H Urine Blood Large H Urine Nitrite Negative Urine Bilirubin Negative Urine Urobilinogen 0.2 Ur Leukocyte Esterase Large H Urine RBC Not Applicable Urine WBC >50 H Ur Epithelial Cells Not Applicable Urine Crystals Not Applicable Urine Bacteria Not Applicable Urine Mucus Not Applicable Ur Culture Indicated? Yes Urine Glucose 500 H 09/10/25 09/10/25 04:31 08:32 WBC 8.16 RBC 3.92 L Hgb 10.6 L Hct 33.2 L MCV 85 MCH 27.0 MCHC 31.9 L RDW 14.0 Plt Count 279 MPV 10.7 Immature Gran % 0.1 Neutrophils % 67.6 Lymphocytes % 20.3 Monocytes % 11.8 Eosinophils % 0.0 Basophils % 0.2 Nucleated RBC % 0.0 Absolute Neutrophils 5.51 Absolute Lymphocytes 1.66 Absolute Monocytes 0.96 H Absolute Eosinophils 0.00 Absolute Basophils 0.02 VBG pH 7.37 VBG pCO2 42 VBG pO2 56 VBG HCO3 24 VBG Total CO2 22 L VBG O2 Saturation 90 VBG Base Excess -1 Sodium 140 142 Potassium 4.0 3.5 Chloride 107 109 H Carbon Dioxide 24.5 25.2 Anion Gap 8.5 7.8 BUN 15 14 Creatinine 0.60 0.64 Est GFR (CKD-EPI 2020) 111.80 103.77 Glucose 129 H 59 L Calcium 8.4 8.1 L Phosphorus 1.7 L Magnesium 1.8 Urine Color Urine Clarity Urine pH Ur Specific [place] Urine Protein Urine Ketones Urine Blood Urine Nitrite Urine Bilirubin Urine Urobilinogen Ur Leukocyte Esterase Urine RBC Urine WBC Ur Epithelial Cells Urine Crystals Urine Bacteria Urine Mucus Ur Culture Indicated? Urine Glucose VTE Prohylaxis Risk Level: Low Risk Contraindications: None Prophylaxis: Patient ambulatory Time Spent with Patient Time Spent with Patient: 35-49 minutes Time was spent: preparing to see the patient(eg.review tests), obtaining and/or reviewing separately otained hiistory, ordering medications,tests, procedures, referring, communicating with other health home health care social worker, indepentently interpreting results, counseling the patient and care coordination
--- NOTE | 2025-09-10 17:48 | PDOC.CMIN ---
Date of service: 09/10/25 Time of Service: 17:48 Care Management Initial Assmt Initial Assessment Reason for Hospitalization: DKA Functional Status/Living Situation Patient Presentation: Emelia was lying in bed when CM met with her. She was pleasant, but engaged minimally in conversation. Per RN, she has been nauseas, tired and feeling weak throughout the day. Emelia reported that she lives in [place] with her and 12 yo son. She works in customer service, and reported that she will likely need a return to work note upon discharge. Per report, she is improving, and was changed from ICU status to med/surg status today. Emelia reported that she has a PCP in [place], Michelle Francis; CM requested that this be updated on her chart. Emelia is independent at baseline, and does not anticipate the need for community services upon discharge. CM will continue to follow. Town of Residence: [place] Resides with: Spouse (, Carlton) Natural Supports: , [place] Employment Status: Employed Instrumental Activities of Daily Living (ADLs): Independent Medications Medication Management: No Issues/Barriers identified Advance Directives Advance Directives: Do you have an Advance Directive: N Today, 12:59 AD On File at [facility]: N Today, 12:59 Date Asked 09/09/25 09/09/25, 14:07 AD Date Reviewed COLST On File at [facility] COLST Date Scanned Code Status Resuscitation Status Full Code Insurance Coverage/Financial Issues Insurance: BC/BS out of state Care Team Visit Care Team Role Provider Type Unknown Unknown Primary Care Provider STAFF PHYSICIAN Buffy Montero RDN, CDCES Other Providers [employer] Joo Curtis Other Providers OTHER Rony Amaya RDN Other Providers [employer]HAND[employer]ER Todd Temple MD Emergency Provider [facility] STAFF PHYSICIAN Hipolito Corral MD Admit Provider [facility] STAFF PHYSICIAN Attending Provider Discharge Potential Discharge Needs: PCP F/U Appt Anticipated Barriers to Discharge: None Identified Patient/Family Education Needs: Review discharge instructions, discuss Ask Me Three Transportation: Private vehicle Plan: Anticipate Emelia will return home once medically cleared. Her will drive her home via private vehicle. She will follow up with her PCP and discharge plan of care. CM will continue to follow. Social Determinants of Health Screening Social Determinants of health last assessed in clinic: 09/10/25 Will the Patient Participate in the Screening?: Yes Do you worry about having a steady place to live?: no Problems where you live: no known problems In the past 12 months, have you had to go without electric, gas, oil or water in your home?: no 1. Within the past 12 months, we worried whether our food would run out before we got money to buy more.: Don't know/refused 2. Within the past 12 months, the food we bought just didn't last and we didn't have money to get more.: Don't know/refused Has lack of transportation kept you from medical appointments or from doing things needed for daily living?: no Has anyone in your life made you feel unsafe or unsupported?: no How hard is it for you to pay for the very basics like food, housing, medical care, and heating? Would you say it is:: Not hard at all Do you want help finding or keeping work or a job?: I do not need or want help If for any reason you need help with day-to-day activities such as bathing, preparing meals, shopping, managing finances, etc., do you get the help you need?: I get all the help I need How often do you feel lonely or isolated from those around you?: Never Do you speak a language other than Tajik at home?: No Does the patient want assistance with any of the above?: No PFSH All Active Problems (Updated 09/09/25 @ 19:33 by Hipolito Corral MD) Chronic esophagitis (Acute) DKA, type 1 (Acute) Medical History (Updated 09/09/25 @ 19:33 by Hipolito Corral MD) Urinary retention Type 1 diabetes Hypokalemia ECG abnormal Electrolyte abnormality Diabetic retinopathy Diabetic neuropathy Diabetic gastroparesis Left ovarian cyst Alcohol use disorder Surgical History (Updated 07/17/25 @ 12:13 by Karmen Peraza) History of esophagogastroduodenoscopy (EGD) Social History Smoking/Tobacco Use Status: Never Smoking risk assessment performed?: Yes Alcohol Intake: former Drug use: Never Housing: house
[2025-09-11] VITALS (30 sets, daily range): BP systolic 95–163; BP diastolic 66–109; PULSE 95–121; RESP 9–25; TEMP 36.5–38.1; O2SAT 91–100
[2025-09-11] MEDS: Lactated Ringers 1,000 ML 50 ML IV (00:24)
[2025-09-11] MEDS: Normal Saline Flush 10 ML SYR IVP ×5 (02:06→21:10)
[2025-09-11] MEDS: LORazepam 2 MG/ML VIAL 0.5 MG IVP ×4 (02:07→21:44)
--- NOTE | 2025-09-11 02:29 | NUR.NOTE ---
Nursing Note: In chart, supervision of House sup to assist in order management
[2025-09-11] MEDS: cefTRIAXone 1 GM VIAL IVPB (02:31)
[2025-09-11] MEDS: Normal Saline 50 ML 100 ML (02:32)
[2025-09-11 03:30] LABS: COVID-19 PCR Negative (Negative); RSV PCR Negative (Negative)
[2025-09-11 06:09] LABS: Abs Immature Grans 0.03 10^3/uL (0.0-0.06); HCT 31.1 % (36.0-46.0); HGB 10.0 g/dL (11.2-15.7); Immature Grans % 0.3 %; MCH 27.1 pg (27.0-33.0); MCHC 32.2 % (32.0-36.0); MCV 84 fL (80-95); MPV 11.0 fL (8.0-11.0); Platelet Count 253 10^3/uL (130-400); RBC 3.69 10^6/uL (3.93-5.22); RDW 13.8 % (11.7-14.6); RDW-SD 42.6 fL; WBC 9.38 10^3/uL (4.4-10.8)
[2025-09-11 06:33] LABS: ALT 8 U/L (10-49); AST 11 U/L (<34); Albumin 3.5 g/dL (3.2-5.0); Alkaline Phosphatase 67 U/L (46-116); Anion Gap 9.5 mmol/L (3-11); BUN 13 mg/dL (9-23); Bilirubin, Total 0.4 mg/dL (0.2-1.2); CO2 25.5 mmol/L (20.0-31.0); Calcium 8.3 mg/dL (8.3-10.6); Chloride 106 mmol/L (98-107); Glucose 259 mg/dL (74-106); Magnesium 1.7 mg/dL (1.6-2.6); Potassium 3.2 mmol/L (3.5-5.1); Sodium 141 mmol/L (136-145); Total Protein 6.6 g/dL (5.7-8.2)
[2025-09-11] MEDS: Insulin Aspart 300 UNITS/3 ML PEN SC ×2 (08:01→17:13)
[2025-09-11] MEDS: Pantoprazole 40 MG VIAL IVP (10:35)
[2025-09-11] MEDS: Metoclopramide 10 MG/2 ML VIAL IVP ×2 (10:35→16:30)
[2025-09-11] MEDS: Lactated Ringers 1,000 ML 100 ML IV ×2 (12:26→21:48)
--- NOTE | 2025-09-11 13:03 | CMPROGNOTE_ITS ---
Date of service: 09/11/25 Time of Service: 13:03 Care Management Progress Note Progress Note Text Progress Note Text: Emelia was lying in bed when CM met with her. She stated that she is still feeling terrible, and she has not been able to keep anything down. Per RN, new medications were ordered today to help with nausea, but she continues to have low intake. Per report, she will be transferred to med/surg today, which she is happy about. CM kept the visit brief, as Emelia is not feeling well. CM will continue to follow. Discharge Potential Discharge Needs: PCP F/U Appt Anticipated Barriers to Discharge: None Identified Patient/Family Education Needs: Review discharge instructions, discuss Ask Me Three Transportation: Private vehicle Plan: Anticipate Emelia will return home once medically cleared. Her will drive her home via private vehicle. She will follow up with her PCP and discharge plan of care. CM will continue to follow. Social Determinants of Health Screening Social Determinants of health last assessed in clinic: 09/11/25 Will the Patient Participate in the Screening?: Yes Do you worry about having a steady place to live?: no Problems where you live: no known problems In the past 12 months, have you had to go without electric, gas, oil or water in your home?: no 1. Within the past 12 months, we worried whether our food would run out before we got money to buy more.: Don't know/refused 2. Within the past 12 months, the food we bought just didn't last and we didn't have money to get more.: Don't know/refused Has lack of transportation kept you from medical appointments or from doing things needed for daily living?: no Has anyone in your life made you feel unsafe or unsupported?: no How hard is it for you to pay for the very basics like food, housing, medical care, and heating? Would you say it is:: Not hard at all Do you want help finding or keeping work or a job?: I do not need or want help If for any reason you need help with day-to-day activities such as bathing, preparing meals, shopping, managing finances, etc., do you get the help you need?: I get all the help I need How often do you feel lonely or isolated from those around you?: Never Do you speak a language other than Bermudian at home?: No Does the patient want assistance with any of the above?: No
[2025-09-11] MEDS: Ondansetron 4 MG/2 ML VIAL IVP ×2 (13:34→21:10)
[2025-09-11] MEDS: Simethicone 80 MG CHEW PO (13:34)
[2025-09-11] MEDS: Enoxaparin 40 MG/0.4 ML SYR SC (14:23)
--- NOTE | 2025-09-11 14:40 | W.PM.PROGNOT ---
Date of Service Date of service: 09/11/25 Time of Service: 14:40 Assessment and Plan Assessment and plan (1) DKA, type 1: Status: Resolved Assessment and plan: -Mixed picture with respiratory alkalosis due to vomiting -Beta hydroxybutyrate elevation, HAGMA, 2nd VBG more acidotic with pH 7.3 -She was given long-acting insulin in the ED less than an hour after insulin drip was started, unclear -Off insulin drip as of Sep 10 morning, challenging transition due to intolerance of PO (2) Intractable nausea and vomiting: Status: Acute Assessment and plan: -She continues to be nauseated after admission, and after resolution of DKA. -Continue NPO except for anti-emetics -Continue D5LR at 50 and LR at 50 -Current N/V regimen is metoclopramide 10 mg IV q4h with droperidol ordered when needed -Gave ativan 0.5 mg IV with good result, she has been able to sleep -patient states she has history of gastroporesis; if not improved by AM will initiate metochlopromide (3) Type 1 diabetes: Assessment and plan: -Home regimen basal 14u plus sliding scale -She may need home regimen adjusted pending PO tolerance -Diabetic education and nutrition consults requested (4) Chronic esophagitis: Status: Acute Assessment and plan: -Continue home PPI -Continue anti-emetics Subjective Subjective Interval history since last seen: Patient states that she is feeling a little better but continues to feel nauseous. Exam Narrative Exam Narrative: well appearing female laying in bed in no acute distress, AOx4, heart RRR, lugs CTAB, abdomen soft, non-tender, non-distended Objective Last Vital Signs Temp 99.1 F 09/11/25 14:15 Pulse 110 H 09/11/25 14:22 Resp 15 09/11/25 14:22 BP 163/99 H 09/11/25 14:22 Pulse Ox 100 09/11/25 14:22 Laboratory Results - last 24 hr 09/09/25 09/11/25 09/11/25 20:20 02:15 05:49 WBC 9.38 RBC 3.69 L Hgb 10.0 L Hct 31.1 L MCV 84 MCH 27.1 MCHC 32.2 RDW 13.8 Plt Count 253 MPV 11.0 Immature Gran % 0.3 Neutrophils % 80.2 Lymphocytes % 14.3 Monocytes % 4.9 Eosinophils % 0.0 Basophils % 0.3 Nucleated RBC % 0.0 Absolute Neutrophils 7.52 H Absolute Lymphocytes 1.34 Absolute Monocytes 0.46 Absolute Eosinophils 0.00 Absolute Basophils 0.03 Sodium 141 Potassium 3.2 L Chloride 106 Carbon Dioxide 25.5 Anion Gap 9.5 BUN 13 Creatinine 0.53 L Est GFR (CKD-EPI 2020) 129.00 Glucose 259 H Calcium 8.3 Phosphorus 2.6 Magnesium 1.7 Total Bilirubin 0.4 AST 11 ALT 8 L Alkaline Phosphatase 67 Total Protein 6.6 Albumin 3.5 B-Hydroxybutyrate 2.4 H COVID-19 Source Nasopharynx SARS-CoV-2 (PCR) Negative Influenza Type A (PCR) Negative Influenza Type B (PCR) Negative RSV (PCR) Negative VTE Prohylaxis Risk Level: Low Risk Contraindications: None Prophylaxis: Patient ambulatory Time Spent with Patient Time Spent with Patient: >50 minutes Time was spent: preparing to see the patient(eg.review tests), obtaining and/or reviewing separately otained hiistory, ordering medications,tests, procedures, referring, communicating with other health hearing healthcare practitioner, indepentently interpreting results, counseling the patient and care coordination
--- NOTE | 2025-09-11 16:38 | W.PC.ACHO ---
Registration Status: ADM IN Primary Language: Preferred Language: ED Information & Data Chief Complaint Nausea/Vomit/Diar 09/09/25 10:53 Triage Note Patient state she started 09/09/25 10:44 vomiting last night. Patient is type 1 diabetic Medical / Surgical History (Last Updated 07/17/25 @ 12:13 by Karmen Peraza) Urinary retention Type 1 diabetes Hypokalemia ECG abnormal Electrolyte abnormality Diabetic retinopathy Diabetic neuropathy Diabetic gastroparesis Left ovarian cyst Alcohol use disorder (Last Updated 07/17/25 @ 12:13 by Karmen Peraza) History of esophagogastroduodenoscopy (EGD) Most Recent Vital Signs Temperature 38.1 C H 09/11/25 16:14 Temperature Source Temporal Artery Scan 09/11/25 16:14 Pulse 103 H 09/11/25 16:14 Pulse 110 H 09/11/25 14:22 Respiratory Rate 18 09/11/25 16:14 Respiratory Effort Normal 09/09/25 15:46 Respiratory Depth Normal 09/09/25 15:46 Respiratory Pattern Normal 09/09/25 15:46 Blood Pressure 153/95 H 09/11/25 16:14 Blood Pressure Mean 114 09/11/25 16:14 Blood Pressure Position Sitting 09/09/25 10:51 Pulse Oximetry 100 09/11/25 16:14 Oxygen Delivery Method Room Air 09/11/25 16:14 Oxygen Flow Rate 0 09/11/25 16:14 Pain Level 0 09/10/25 16:47 Allergies sulfamethoxazole (From Bactrim) Allergy (Unverified 09/09/25 10:49) Unknown trimethoprim (From Bactrim) Allergy (Unverified 09/09/25 10:49) Unknown Active Medications Generic Name Dose Route Start Last Admin Trade Name Freq PRN Reason Stop Dose Admin Dextrose/Water 0 gm 09/10/25 08:31 09/10/25 09:10 Dextrose 50%-Water 25 Gm/50 Ml Syr IVP 25 gm DIRECTED PRN Administration Enoxaparin Sodium 40 mg 09/11/25 14:00 09/11/25 14:23 Enoxaparin 40 Mg/0.4 Ml Syr SC 40 mg Q24H LEX Administration Ringer's Solution 1,000 mls @ 100 mls/hr 09/10/25 10:15 09/11/25 12:26 IV 100 mls/hr INFUSION LEX Administration Insulin Aspart 0 units 09/10/25 12:00 09/11/25 11:59 Insulin Aspart 300 Units/3 Ml Pen SC Not Given 0800,1200,1700 [facility] Protocol Insulin Glargine 11 units 09/11/25 12:00 09/11/25 12:00 Insulin Glargine 300 Units/3 Ml Pen SC Not Given DAILY LEX Lorazepam 0.5 mg 09/11/25 01:18 09/11/25 14:22 Lorazepam 2 Mg/Ml Vial IVP 0.5 mg Q6H PRN PRN Administration Metoclopramide HCl 10 mg 09/11/25 10:19 09/11/25 16:30 Metoclopramide 10 Mg/2 Ml Vial IVP 10 mg Q6H PRN PRN Administration Ondansetron HCl 4 mg 09/11/25 13:24 09/11/25 13:34 Ondansetron 4 Mg/2 Ml Vial IVP 4 mg Q6H PRN PRN Administration Pantoprazole Sodium 40 mg 09/11/25 10:23 09/11/25 10:35 Pantoprazole 40 Mg Vial IVP 40 mg DAILY LEX Administration Sodium Chloride 0 ml 09/09/25 14:36 09/11/25 14:23 Normal Saline Flush 10 Ml Syr IVP 40 ml PRN PRN Administration Sodium Chloride 0 ml 09/09/25 20:00 09/11/25 08:01 Normal Saline Flush 10 Ml Syr IVP 40 ml BID LEX Administration IV IV Catheter Type [Left Upper Saline Lock arm] IV Catheter Type [Right Peripheral IV Antecubital] IV Catheter Gauge [Left Upper 18 arm] IV Catheter Gauge [Right 18 Antecubital] Diagnostics 09/11/25 09/11/25 09/09/25 Range/Units 05:49 02:15 20:20 WBC 9.38 (4.4-10.8) 10^3/uL RBC 3.69 L (3.93-5.22) 10^6/uL Hgb 10.0 L (11.2-15.7) g/dL Hct 31.1 L (36.0-46.0) % MCV 84 (80-95) fL MCH 27.1 (27.0-33.0) pg MCHC 32.2 (32.0-36.0) % RDW 13.8 (11.7-14.6) % Plt Count 253 (130-400) 10^3/uL MPV 11.0 (8.0-11.0) fL Immature Gran % 0.3 % Neutrophils % 80.2 % Lymphocytes % 14.3 % Monocytes % 4.9 % Eosinophils % 0.0 % Basophils % 0.3 % Nucleated RBC % 0.0 (0.0-0.3) % Absolute Neutrophils 7.52 H (1.2-6.7) 10^3/uL Absolute Lymphocytes 1.34 (1.2-3.4) 10^3/uL Absolute Monocytes 0.46 (0.1-0.8) 10^3/uL Absolute Eosinophils 0.00 (0.0-0.7) 10^3/uL Absolute Basophils 0.03 (0.0-0.2) 10^3/uL Sodium 141 (136-145) mmol/L Potassium 3.2 L (3.5-5.1) mmol/L Chloride 106 (98-107) mmol/L Carbon Dioxide 25.5 (20.0-31.0) mmol/L Anion Gap 9.5 (3-11) mmol/L BUN 13 (9-23) mg/dL Creatinine 0.53 L (0.55-1.02) mg/dL Est GFR (CKD-EPI 2020) 129.00 (mL/min/1.73m2) Glucose 259 H (74-106) mg/dL Calcium 8.3 (8.3-10.6) mg/dL Phosphorus 2.6 (2.4-5.1) mg/dL Magnesium 1.7 (1.6-2.6) mg/dL Total Bilirubin 0.4 (0.2-1.2) mg/dL AST 11 (<34) U/L ALT 8 L (10-49) U/L Alkaline Phosphatase 67 (46-116) U/L Total Protein 6.6 (5.7-8.2) g/dL Albumin 3.5 (3.2-5.0) g/dL B-Hydroxybutyrate 2.4 H (<0.4) mmol/L COVID-19 Source Nasopharynx SARS-CoV-2 (PCR) Negative (Negative) Influenza Type A (PCR) Negative (Negative) Influenza Type B (PCR) Negative (Negative) RSV (PCR) Negative (Negative) 09/09/25 20:00 Urine Culture - Final Urine - Reflex from Ua Escherichia coli Vuuum-nl-Ncof Documentation Fingerstick Glucose Start: 09/09/25 13:47 Freq: Status: Complete Protocol: Activity Type Activity Date Activity User E-sign Co-sign Detail Recorded Client Recorded Date Recorded By Document 09/09/25 14:43 BKG DAEMON(9) NVT-BG05 09/09/25 14:44 BKG DAEMON(10) Fingerstick Glucose Start: 09/09/25 15:48 Freq: Status: Complete Protocol: Activity Type Activity Date Activity User E-sign Co-sign Detail Recorded Client Recorded Date Recorded By Document 09/09/25 15:47 BKG DAEMON(10) NVT-BG05 09/09/25 15:48 BKG DAEMON(10) Fingerstick Glucose Start: 09/09/25 16:04 Freq: .Q1H Status: Complete Protocol: Activity Type Activity Date Activity User E-sign Co-sign Detail Recorded Client Recorded Date Recorded By Document 09/10/25 08:28 BKG DAEMON(10) NVT-BG05 09/10/25 08:30 BKG DAEMON(10) Fingerstick Glucose Start: 09/10/25 08:31 Freq: AC & HS Status: Active Protocol: Activity Type Activity Date Activity User E-sign Co-sign Detail Recorded Client Recorded Date Recorded By Document 09/11/25 16:28 BKG DAEMON(10) NVT-BG05 09/11/25 16:28 BKG DAEMON(10) Intake and Output - 24 Hour Total 09/09/25 10:41 thru 09/11/25 15:06 Intake Total 8179.127 Output Total 5895 Balance 2284.127 Weight 52.3 kg Intake: IV 7879.127 Oral 300 Output: Urine 5465 Emesis 430 Other: Urine Color Yellow Urine Appearance Clear Urine Odor Strong Stool Size Moderate Stool Characteristics Soft Emesis Description Bile Falls Risk Assessment History of Falls No History 09/09/25 15:46 Contributing Factors No Factors 09/09/25 15:46 Ambulatory Aids Independent 09/09/25 15:46 Tubes/Lines W/no contributing factors 09/09/25 15:46 Gait Evaluation No gait disturbance 09/09/25 15:46 Cognition No cognitive impairment 09/09/25 15:46 Fall Total Score 10 09/09/25 15:46 Level of Risk Standard/Low Risk 09/09/25 15:46 Problems (Last Updated 07/17/25 @ 12:13 by Karmen Peraza) Intractable nausea and vomiting (Acute) Chronic esophagitis (Acute) Notes 09/11/25 02:29 Nursing Notes by Lali Dumont Nursing Note: In chart, supervision of House sup to assist in order management Initialized on 09/11/25 02:29 - END OF NOTE Attestation Statement: By documenting the first initial, last name, and credentials of the reporting nurse below, both parties acknowledge that all relevant information regarding the patient handoff has been communicated, and that all questions have been addressed to ensure continuity and safety of care. Additional Patient Information/Comments: Report Received From: report received from GENERAL UTILITY MACHINE OPERATOR Bisi Shoemaker. Complete Sbar Report, no further questions
[2025-09-11] MEDS: Cefpodoxime 200 MG TAB PO (21:10)
[2025-09-12 03:07] VITALS: BP 134/90; PULSE 112; RESP 18; TEMP 36.5; O2SAT 100
[2025-09-12] MEDS: LORazepam 2 MG/ML VIAL 0.5 MG IVP ×2 (03:48→12:42)
[2025-09-12] MEDS: Ondansetron 4 MG/2 ML VIAL IVP ×2 (03:48→10:11)
[2025-09-12] MEDS: Insulin Aspart 300 UNITS/3 ML PEN SC ×2 (04:47→08:38)
[2025-09-12 07:56] VITALS: BP 136/84; PULSE 100; RESP 20; TEMP 36.8; O2SAT 100
[2025-09-12] MEDS: Metoclopramide 10 MG/2 ML VIAL IVP (08:36)
[2025-09-12] MEDS: Pantoprazole 40 MG VIAL IVP (08:37)
[2025-09-12] MEDS: Cefpodoxime 200 MG TAB PO (08:37)
[2025-09-12] MEDS: Insulin Glargine 300 UNITS/3 ML PEN 11 UNITS SC (08:38)
[2025-09-12] MEDS: Lactated Ringers 1,000 ML 100 ML IV (08:39)
[2025-09-12] MEDS: Normal Saline Flush 10 ML SYR IVP ×2 (08:40→12:43)
[2025-09-12 12:36] VITALS: BP 161/104; PULSE 100; RESP 22; TEMP 37.6; O2SAT 100
[2025-09-12 13:30] VITALS: BP 134/82; PULSE 97; TEMP 37
--- NOTE | 2025-09-12 13:48 | W.PM.DS.N ---
Date of service: 09/12/25 Time of Service: 13:48 DS: Diagnosis Discharge Diagnosis (1) DKA, type 1: Status: Resolved (2) Intractable nausea and vomiting: Status: Acute (3) Type 1 diabetes: (4) Chronic esophagitis: Status: Acute Discharge Plan Disposition Patient Disposition: Home Condition: Good Discharge Details Reason For Visit: DKA Admit Date/Time: 09/09/25 14:36 Admit Provider: Hipolito Corral Attending Provider: Hipolito Corral Primary Care Provider: Michelle Francis Hospital Course Hospital Course: Patient initially presented with signs and symptoms consistent with DKA. Patient also has a longstanding history of gastroparesis and was having ongoing difficulty with p.o. intake and nausea. She was initially on insulin drip and was transitioned to her home insulin regimen without difficulty, though she was trying to keep up with her p.o. intake but had difficulty with nausea. While the patient is on metoclopramide at home it is only p.o. every 8 hours as needed. Given the increase in her symptoms which she states precedes her hospitalization, it is recommended that she be on liquid metoclopramide and take it prior to meals. Patient also states that she has very close follow-up with gastroenterology at [facility] for her gastroparesis and it is recommended that she keep these appointments. Home Meds and New Rx's Prescriptions: New cefpodoxime 200 mg Tablet 200 mg PO BID Qty: 10 0RF metoclopramide HCl 5 mg/5 mL solution 10 mg PO QACHS Qty: 1000 2RF Continued multivitamin Tablet 1 tab PO DAILY prochlorperazine maleate [Compazine] 5 mg tablet 5 mg PO TID PRN triamcinolone acetonide 0.1 % cream 1 applic topical DAILY potassium 99 mg tablet 99 mg PO DAILY docusate sodium 100 mg capsule 200 mg PO DAILY PRN acetylcysteine 600 mg capsule 1,200 mg PO BID magnesium oxide 400 mg magnesium capsule 400 mg PO DAILY crisaborole 2 % ointment 1 applic topical DAILY insulin lispro [Humalog Wilberto KwikPen U-100] 100 unit/mL insulin pen, half-unit 1 sliding scale dose subcut USEASDIRECTD insulin glargine U-300 conc [Toujeo Max U-300 SoloStar] 300 unit/mL (3 mL) insulin pen 14 unit subcut DAILY glucagon 3 mg/actuation spray,non-aerosol 3 mg intranasal ONCE Rx Instructions: as a single dose Held omeprazole 40 mg capsule,delayed release(DR/EC) 40 mg PO DAILY Hold Instructions: Resume on 08/15/25. Discontinued metoclopramide HCl 10 mg tablet 10 mg PO Q8H PRN Discharge Instructions Stand Alone Forms: Portal Information Activity:: Activity as Tolerated Equipment/Supplies:: No Equipment Needed Diet:: As Tolerated Discharge Orders Discharge Orders: Discharge Order (Routine); Ordered 09/12/25 Ordered By: Mahamed Hernandez DS: Summary Time Spent with Patient providing and/or coordinating discharge services: Greater than 30 minutes Status at Discharge Functional status at discharge: independent ambulation Overall status at discharge: patient is back to baseline Mental Status: mental status grossly normal Speech and Movement: speech and movement normal Mood: congruent mood Affect: normal affect Exam Narrative Exam Narrative: well appearing female laying in bed in no acute distress, AOx4, heart RRR, lugs CTAB, abdomen soft, non-tender, non-distended Psych Mental Status: mental status grossly normal Speech and Movement: speech and movement normal Mood: congruent mood Affect: normal affect DS: Data Vitals/I&O Vitals and I&O: Vital Signs Temperature 98.6 F 09/12/25 13:30 Temperature Source Tympanic 09/12/25 12:36 Pulse 97 H 09/12/25 13:30 Pulse 110 H 09/11/25 14:22 Respiratory Rate 22 09/12/25 12:36 Respiratory Effort Normal 09/09/25 15:46 Respiratory Depth Normal 09/09/25 15:46 Respiratory Pattern Normal 09/09/25 15:46 Blood Pressure 134/82 09/12/25 13:30 Blood Pressure Mean 99 09/12/25 13:30 Blood Pressure Position Sitting 09/09/25 10:51 Pulse Oximetry 100 09/12/25 12:36 Oxygen Delivery Method Room Air 09/12/25 12:36 Oxygen Flow Rate 0 09/12/25 12:36 Pain Level 0 09/12/25 07:56 Comment the nurse was notified about pulse rate. 09/12/25 03:07 Intake & Output 09/11/25 09/12/25 09/12/25 17:59 05:59 17:59 Intake Total 986.667 / 464.759 4878.667 / 2163.334 1000 / 1000 Output Total 1765 / 1765 1800 / 3565 900 / 900 Balance -778.333 / -778.333 -623.333 / -1401.666 100 / 100 Intake: IV 986.667 / 986.667 936.667 / 5787.527 9648 / 1000 Oral 240 / 240 Output: Urine 1765 / 1765 1800 / 3565 900 / 900 Other: Urine Color Yellow [place] Yellow Urine Appearance Clear Clear Clear Urine Odor Strong Normal Data Completed and Pending Pending Labs at Discharge: 09/09/25 09/09/25 09/09/25 11:15 11:51 13:30 WBC 9.43 RBC 4.57 Hgb 12.4 Hct 38.7 MCV 85 MCH 27.1 MCHC 32.0 RDW 13.7 Plt Count 330 MPV 12.7 H Immature Gran % 0.5 Neutrophils % 88.6 Lymphocytes % 8.6 Monocytes % 1.8 Eosinophils % 0.0 Basophils % 0.5 Nucleated RBC % 0.0 Absolute Neutrophils 8.35 H Absolute Lymphocytes 0.81 L Absolute Monocytes 0.17 Absolute Eosinophils 0.00 Absolute Basophils 0.05 VBG pH 7.43 H 7.30 L VBG pCO2 37 L 49 VBG pO2 100 31 VBG HCO3 25 24 VBG Total CO2 22 L 22 L VBG O2 Saturation 98 51 VBG Base Excess 0 -2 Sodium Cancelled 141 142 Potassium Cancelled 3.6 3.8 Chloride Cancelled 102 105 Carbon Dioxide Cancelled 27.1 24.1 Anion Gap Cancelled 11.9 H 12.9 H BUN Cancelled 23 20 Creatinine Cancelled 0.58 0.53 L Est GFR (CKD-EPI 2020) Cancelled 116.26 129.00 Glucose Cancelled 260 H 248 H Calcium Cancelled 9.4 8.7 Phosphorus Magnesium Cancelled 2.0 Total Bilirubin Cancelled 0.4 AST Cancelled 19 ALT Cancelled 10 Alkaline Phosphatase Cancelled 89 Troponin I Cancelled < 3 < 3 Total Protein Cancelled 9.1 H Albumin Cancelled 4.9 Lipase Cancelled 22 Beta-Hydroxybutyrate Cancelled 3.04 H TSH Cancelled 0.87 Urine Color Urine Clarity Urine pH Ur Specific [place] Urine Protein Urine Ketones Urine Blood Urine Nitrite Urine Bilirubin Urine Urobilinogen Ur Leukocyte Esterase Urine RBC Urine WBC Ur Epithelial Cells Urine Crystals Urine Bacteria Urine Mucus Ur Culture Indicated? Urine Glucose B-Hydroxybutyrate COVID-19 Source SARS-CoV-2 (PCR) Influenza Type A (PCR) Influenza Type B (PCR) RSV (PCR) 09/09/25 09/09/25 09/09/25 16:30 20:00 20:20 WBC RBC Hgb Hct MCV MCH MCHC RDW Plt Count MPV Immature Gran % Neutrophils % Lymphocytes % Monocytes % Eosinophils % Basophils % Nucleated RBC % Absolute Neutrophils Absolute Lymphocytes Absolute Monocytes Absolute Eosinophils Absolute Basophils VBG pH 7.34 VBG pCO2 45 VBG pO2 53 VBG HCO3 24 VBG Total CO2 23 L VBG O2 Saturation 86 VBG Base Excess -2 Sodium 144 143 Potassium 3.5 4.1 Chloride 108 H 108 H Carbon Dioxide 27.9 24.0 Anion Gap 8.1 11 BUN 21 19 Creatinine 0.57 0.57 Est GFR (CKD-EPI 2020) 118.61 118.61 Glucose 159 H 223 H Calcium 8.7 8.6 Phosphorus Magnesium 1.8 1.8 Total Bilirubin AST ALT Alkaline Phosphatase Troponin I Total Protein Albumin Lipase Beta-Hydroxybutyrate TSH Urine Color Yellow Urine Clarity Turbid Urine pH 5.5 Ur Specific [place] 1.020 Urine Protein 100 H Urine Ketones 80 H Urine Blood Large H Urine Nitrite Negative Urine Bilirubin Negative Urine Urobilinogen 0.2 Ur Leukocyte Esterase Large H Urine RBC Not Applicable Urine WBC >50 H Ur Epithelial Cells Not Applicable Urine Crystals Not Applicable Urine Bacteria Not Applicable Urine Mucus Not Applicable Ur Culture Indicated? Yes Urine Glucose 500 H B-Hydroxybutyrate 2.4 H COVID-19 Source SARS-CoV-2 (PCR) Influenza Type A (PCR) Influenza Type B (PCR) RSV (PCR) 09/10/25 09/10/25 09/10/25 00:42 04:31 08:32 WBC 8.16 RBC 3.92 L Hgb 10.6 L Hct 33.2 L MCV 85 MCH 27.0 MCHC 31.9 L RDW 14.0 Plt Count 279 MPV 10.7 Immature Gran % 0.1 Neutrophils % 67.6 Lymphocytes % 20.3 Monocytes % 11.8 Eosinophils % 0.0 Basophils % 0.2 Nucleated RBC % 0.0 Absolute Neutrophils 5.51 Absolute Lymphocytes 1.66 Absolute Monocytes 0.96 H Absolute Eosinophils 0.00 Absolute Basophils 0.02 VBG pH 7.37 VBG pCO2 42 VBG pO2 56 VBG HCO3 24 VBG Total CO2 22 L VBG O2 Saturation 90 VBG Base Excess -1 Sodium 140 140 142 Potassium 3.4 L 4.0 3.5 Chloride 108 H 107 109 H Carbon Dioxide 24.8 24.5 25.2 Anion Gap 7.2 8.5 7.8 BUN 17 15 14 Creatinine 0.60 0.60 0.64 Est GFR (CKD-EPI 2020) 111.80 111.80 103.77 Glucose 214 H 129 H 59 L Calcium 8.0 L 8.4 8.1 L Phosphorus 1.7 L Magnesium 1.8 Total Bilirubin AST ALT Alkaline Phosphatase Troponin I Total Protein Albumin Lipase Beta-Hydroxybutyrate TSH Urine Color Urine Clarity Urine pH Ur Specific [place] Urine Protein Urine Ketones Urine Blood Urine Nitrite Urine Bilirubin Urine Urobilinogen Ur Leukocyte Esterase Urine RBC Urine WBC Ur Epithelial Cells Urine Crystals Urine Bacteria Urine Mucus Ur Culture Indicated? Urine Glucose B-Hydroxybutyrate COVID-19 Source SARS-CoV-2 (PCR) Influenza Type A (PCR) Influenza Type B (PCR) RSV (PCR) 09/11/25 09/11/25 02:15 05:49 WBC 9.38 RBC 3.69 L Hgb 10.0 L Hct 31.1 L MCV 84 MCH 27.1 MCHC 32.2 RDW 13.8 Plt Count 253 MPV 11.0 Immature Gran % 0.3 Neutrophils % 80.2 Lymphocytes % 14.3 Monocytes % 4.9 Eosinophils % 0.0 Basophils % 0.3 Nucleated RBC % 0.0 Absolute Neutrophils 7.52 H Absolute Lymphocytes 1.34 Absolute Monocytes 0.46 Absolute Eosinophils 0.00 Absolute Basophils 0.03 VBG pH VBG pCO2 VBG pO2 VBG HCO3 VBG Total CO2 VBG O2 Saturation VBG Base Excess Sodium 141 Potassium 3.2 L Chloride 106 Carbon Dioxide 25.5 Anion Gap 9.5 BUN 13 Creatinine 0.53 L Est GFR (CKD-EPI 2020) 129.00 Glucose 259 H Calcium 8.3 Phosphorus 2.6 Magnesium 1.7 Total Bilirubin 0.4 AST 11 ALT 8 L Alkaline Phosphatase 67 Troponin I Total Protein 6.6 Albumin 3.5 Lipase Beta-Hydroxybutyrate TSH Urine Color Urine Clarity Urine pH Ur Specific [place] Urine Protein Urine Ketones Urine Blood Urine Nitrite Urine Bilirubin Urine Urobilinogen Ur Leukocyte Esterase Urine RBC Urine WBC Ur Epithelial Cells Urine Crystals Urine Bacteria Urine Mucus Ur Culture Indicated? Urine Glucose B-Hydroxybutyrate COVID-19 Source Nasopharynx SARS-CoV-2 (PCR) Negative Influenza Type A (PCR) Negative Influenza Type B (PCR) Negative RSV (PCR) Negative PFSH All Active Problems (Updated 09/10/25 @ 18:55 by Hipolito Corral MD) Intractable nausea and vomiting (Acute) Chronic esophagitis (Acute) Medical History (Updated 09/10/25 @ 18:55 by Hipolito Corral MD) Urinary retention Type 1 diabetes Hypokalemia ECG abnormal Electrolyte abnormality Diabetic retinopathy Diabetic neuropathy Diabetic gastroparesis Left ovarian cyst Alcohol use disorder Surgical History (Updated 07/17/25 @ 12:13 by Karmen Peraza) History of esophagogastroduodenoscopy (EGD) Social History Smoking/Tobacco Use Status: Never Smoking risk assessment performed?: Yes Alcohol Intake: former Drug use: Never Housing: house Time Spent with Patient Time Spent with Patient: <45 minutes Time was spent: preparing to see the patient(eg.review tests), obtaining and/or reviewing separately otained hiistory, ordering medications,tests, procedures, referring, communicating with other health aged or disabled care worker, indepentently interpreting results, counseling the patient and care coordination
--- NOTE | 2025-09-12 14:28 | PDOC.CMDIS ---
Date of service: 09/12/25 Time of Service: 14:28 LACE Index Scoring Tool Questions: Length of Stay (in days): 3 Was the patient admitted via the E.D.?: Yes Comorbidities: Diabetes w/o Complication E.D. Visits: 0 Answers: Total Score: 7 Risk of Readmission: Low Risk Care Management Discharge Plan Reason for Hospitalization: DKA Discharge Plan: Emelia will return home today with no new services. Her will drive her home via private vehicle. She will follow up with her PCP and discharge plan of care. She is happy to be going home to spend the holiday with her family. Patient/Family Education Needs: Review discharge instructions and limitations, discussion of self care needs including ask me three.
== END 2025-09-12 15:26 | disposition home or self-care (01) | DRG 638 ==
LOC: ER 14:16 → ICU 09-10 07:38 → MS 09-11 16:09
PROVIDERS: Family Medicine; Admitting Provider Family Medicine; Emergency Provider Emergency Medicine; PCP Internal Medicine; Responsible Provider Family Medicine; Visit Provider Family Medicine
DX: E10.10 Type 1 diabetes mellitus with ketoacidosis without coma (principal); E87.3 Alkalosis; K20.90 Esophagitis, unspecified without bleeding; R11.2 Nausea with vomiting, unspecified; E10.40 Type 1 diabetes mellitus with diabetic neuropathy, unspecified; E10.43 Type 1 diabetes mellitus with diabetic autonomic (poly)neuropathy; E10.319 Type 1 diabetes mellitus with unspecified diabetic retinopathy without macular edema; R33.9 Retention of urine, unspecified; E87.6 Hypokalemia; R94.31 Abnormal electrocardiogram [ECG] [EKG]; F10.90 Alcohol use, unspecified, uncomplicated; Z79.899 Other long term (current) drug therapy
CPT/HCPCS: 00123; 36415; 36416; 80048; 80053; 82010; 82805; 82962; 83690; 87077; 87637; 93005; 96365; 96366; 96367; 96375; 97161; 97530; 99291; J1650; 81003; 81015; 83735; 84100; 84443; 84484; 85025; 87086; 87186; 93010; 99222; 99232; 99233; 99238; J0696; J0780; J1790; J1815; J2060; J2405; J2470; J2765; J3480